=== PATIENT | female | born 2005 | race Two or more races ===

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

== ENCOUNTER 2024-02-14 21:23 | Inpatient (IN) | payer MEDICAID ==
[~2024-02-14] VITALS: Ht 180.3 cm; Wt 134.9 kg
[2024-02-14] MEDS: SODIUM CHLORIDE 0.9% 1,000 ML IVB ONE (00:30)
[2024-02-14] MEDS: PANTOPRAZOLE 40 MG/10 ML VIAL INJ IV ONE (00:30)
[2024-02-14] MEDS: MORPHINE SULFATE 4 MG/ML SYR/VIAL IV ONE (00:30)
[2024-02-14] MEDS: ONDANSETRON HCL 4 MG/2 ML VIAL IV ONE (00:30)
[~2024-02-14 21:23] MED LIST: PANT40TA2 PO
[2024-02-14 21:56] LABS: Basophils # (auto) 0 10 ^3/uL (0-0.2); Basophils % (auto) 0.4 % (0.0-2.0); Eosinophils # (auto) 0.1 10 ^3/uL (0-0.8); Eosinophils % (auto) 1.8 % (0.0-7.0); Hematocrit 35.9 % (36.0-46.0); Hemoglobin 12.2 g/dL (12.2-16.2); Lymphocytes # (auto) 1.8 10 ^3/uL (0.4-5.4); Lymphocytes % (auto) 24.4 % (10.0-50.0); Mean Corpuscular Hemoglobin 31.4 pg (28.0-32.0); Mean Corpuscular Hgb Conc. 34.1 g/dL (32.0-36.0); Mean Corpuscular Volume 92.1 fL (80.0-100.0); Monocytes # (auto) 0.5 10 ^3/uL (0-1.3); Monocytes % (auto) 6.9 % (0.0-12.0); Neutrophils % (auto) 66.5 % (37.0-80.0); Platelet Count (auto) 245 10^3/uL (140-450); Red Cell Distribution Width 13.2 % (11.8-14.3); White Blood Cell 7.5 10^3/uL (4.4-10.8)
[2024-02-14 22:15] LABS: Alanine Aminotransferase 18 U/L (7-40); Albumin 4.5 g/dL (3.2-4.8); Alkaline Phosphatase 75 U/L (46-116); Anion Gap 4 (5-15); Aspartate Aminotransferase 10 U/L (13-40); BUN/Creatinine Ratio 16.3 (10.0-20.0); Bilirubin, Total 0.3 mg/dL (0.2-1.0); Blood Urea Nitrogen 13 mg/dL (9-23); Calcium 9.6 mg/dL (8.7-10.4); Carbon Dioxide 29 mmol/L (20-31); Chloride 109 mmol/L (98-107); Glucose 92 mg/dL (74-106); Lipase 35 U/L (12-53); Potassium 4.1 mmol/L (3.5-5.1); Sodium 142 mmol/L (136-145); Total Protein 6.9 g/dL (5.7-8.2)
[2024-02-14 22:50] VITALS: PULSE 64; RESP 18; O2SAT 96
[2024-02-14 22:57] LABS: Urine WBC None Seen /hpf (0 - 5)
[2024-02-14 23:10] LABS: Urine Bacteria FEW /hpf (None Seen); Urine Blood Negative /uL (Negative); Urine Clarity Clear (Clear); Urine Color Yellow (Yellow); Urine Mucus FEW (None Seen); Urine Protein, UAD 1+ (Negative); Urine Specific Gravity 1.045 (1.001-1.035); Urine Urobilinogen 4 mg/dL (Negative); Urine pH 6.5 (5.0-9.0)
[2024-02-15] VITALS (9 sets, daily range): BP systolic 108–133; BP diastolic 72–75; PULSE 51–68; RESP 12–20; TEMP 97.9–98; O2SAT 96–98
[2024-02-15] MEDS ORDERED: ONDANSETRON HCL 4 MG/2 ML VIAL IV PRN (02:00)
[2024-02-15] MEDS: PANTOPRAZOLE 40 MG/10 ML VIAL INJ IV SCH (09:47)
[2024-02-15 14:41] LABS: INR 0.97 (0.9-1.15); Prothrombin Time 10.3 sec (9.3-11.8)
[2024-02-15] MEDS: metroNIDAZOLE 500MG/100ML 100 ML IV SCH (16:25)
[2024-02-15] MEDS: cefTRIAXone 2GM/50ML D5W 50 ML IV ONE (18:37)
[2024-02-16] VITALS (7 sets, daily range): BP systolic 102–150; BP diastolic 60–94; PULSE 42–76; RESP 16–20; TEMP 97.4–98.9; O2SAT 90–100
[2024-02-16 06:22] LABS: Basophils # (auto) 0 10 ^3/uL (0-0.2); Basophils % (auto) 0.5 % (0.0-2.0); Eosinophils # (auto) 0.1 10 ^3/uL (0-0.8); Eosinophils % (auto) 2.4 % (0.0-7.0); Hematocrit 33.8 % (36.0-46.0); Hemoglobin 11.7 g/dL (12.2-16.2); Lymphocytes # (auto) 2.3 10 ^3/uL (0.4-5.4); Lymphocytes % (auto) 42.8 % (10.0-50.0); Mean Corpuscular Hemoglobin 31.8 pg (28.0-32.0); Mean Corpuscular Hgb Conc. 34.5 g/dL (32.0-36.0); Mean Corpuscular Volume 92.2 fL (80.0-100.0); Monocytes # (auto) 0.4 10 ^3/uL (0-1.3); Neutrophils # (auto) 2.6 10 ^3/uL (1.6-8.6); Neutrophils % (auto) 47.3 % (37.0-80.0); Nucleated Red Blood Cells % 0.1 %; Platelet Count (auto) 214 10^3/uL (140-450); Red Blood Cells 3.67 10^6/uL (4.0-5.20); Red Cell Distribution Width 13.2 % (11.8-14.3); White Blood Cell 5.5 10^3/uL (4.4-10.8)
[2024-02-16 06:30] LABS: Anion Gap 7 (5-15); Carbon Dioxide 26 mmol/L (20-31); Chloride 107 mmol/L (98-107); Potassium 3.5 mmol/L (3.5-5.1); Sodium 140 mmol/L (136-145)
[2024-02-16 06:32] LABS: Calcium 9.4 mg/dL (8.7-10.4)
[2024-02-16 06:36] LABS: Glucose 84 mg/dL (74-106)
[2024-02-16 06:37] LABS: BUN/Creatinine Ratio 8.7 (10.0-20.0); Blood Urea Nitrogen 6 mg/dL (9-23)
[2024-02-16 08:16] LABS: Bilirubin, Direct 0.2 mg/dL (<0.3); Bilirubin, Total 0.7 mg/dL (0.2-1.0)
[2024-02-16] MEDS: ceFAZolin 2 GM/D5W100ml 100 ML IV ONE (08:31)
[2024-02-16] MEDS ORDERED: fentaNYL CITRATE 100 MCG/2 ML VL ONE (09:17)
[2024-02-16] MEDS ORDERED: MIDAZOLAM HCL 2MG/2ML 2ml VIAL (1mg/ml) ONE (09:17)
[2024-02-16] MEDS ORDERED: ONDANSETRON HCL 4 MG/2 ML VIAL ONE (09:19)
[2024-02-16] MEDS ORDERED: LIDOCAINE 2% (LOCAL ANESTH.) PF 5ml SDV ONE (09:19)
[2024-02-16] MEDS ORDERED: PROPOFOL 10 MG/ML 20 ML IV ONE (09:19)
[2024-02-16] MEDS ORDERED: ROCURONIUM 10MG/ML 10ML VIAL IV ONE (09:20)
[2024-02-16] MEDS: SUCCINYLCHOLINE CHLORIDE 20 MG/ML 10ML VIAL IV ONE (09:34)
[2024-02-16] MEDS: cefTRIAXone 2GM/50ML D5W 50 ML IV SCH (10:00)
[2024-02-16] MEDS: BUPIVACAINE 0.25% INJ 50ML VIAL ONE (10:14)
[2024-02-16] MEDS ORDERED: HYDROmorphone HCL 2 MG/ML VL/or syr IV PRN (10:30)
[2024-02-16] MEDS: ONDANSETRON HCL 4 MG/2 ML VIAL IV ONE (10:30)
[2024-02-16] MEDS ORDERED: GLYCOPYRROLATE 0.2 MG/ML 1ML VIAL ONE (10:50)
[2024-02-16] MEDS ORDERED: NEOSTIGMINE 1 MG/ML INJ (10mg/10ML VIAL) ONE (10:50)
[2024-02-16] MEDS ORDERED: MEPERIDINE HCL (50 MG/ML) 1 ML VIAL ONE (10:50)
[2024-02-16] MEDS: HYDROmorphone HCL 2 MG/ML VL/or syr IV PRN (11:11)
[2024-02-16] MEDS: MORPHINE SULFATE INJ 2 MG/ml SYRG IV PRN (14:07)
[2024-02-16] MEDS: HYDROcodone-ACET 5/325MG TAB PO PRN (18:08)
[2024-02-17 01:00] VITALS: BP 137/77; PULSE 72; RESP 18; TEMP 97.8; O2SAT 95
[2024-02-17 05:00] VITALS: BP 124/70; PULSE 73; RESP 18; TEMP 97.8; O2SAT 95
[2024-02-17 06:54] LABS: Basophils # (auto) 0 10 ^3/uL (0-0.2); Basophils % (auto) 0.2 % (0.0-2.0); Eosinophils # (auto) 0.1 10 ^3/uL (0-0.8); Eosinophils % (auto) 0.9 % (0.0-7.0); Hematocrit 32.3 % (36.0-46.0); Hemoglobin 11.3 g/dL (12.2-16.2); Lymphocytes # (auto) 1.9 10 ^3/uL (0.4-5.4); Mean Corpuscular Hemoglobin 31.9 pg (28.0-32.0); Mean Corpuscular Volume 91.3 fL (80.0-100.0); Monocytes # (auto) 0.5 10 ^3/uL (0-1.3); Monocytes % (auto) 7.6 % (0.0-12.0); Neutrophils # (auto) 3.8 10 ^3/uL (1.6-8.6); Neutrophils % (auto) 61.3 % (37.0-80.0); Nucleated Red Blood Cells % 0.1 %; Platelet Count (auto) 213 10^3/uL (140-450); Red Blood Cells 3.54 10^6/uL (4.0-5.20); Red Cell Distribution Width 13.2 % (11.8-14.3); White Blood Cell 6.2 10^3/uL (4.4-10.8)
[2024-02-17 07:13] LABS: Alanine Aminotransferase 21 U/L (7-40); Albumin 3.8 g/dL (3.2-4.8); Alkaline Phosphatase 52 U/L (46-116); Anion Gap 6 (5-15); Aspartate Aminotransferase 20 U/L (13-40); BUN/Creatinine Ratio 7.2 (10.0-20.0); Bilirubin, Total 0.7 mg/dL (0.2-1.0); Blood Urea Nitrogen < 5 mg/dL (9-23); Calcium 9.3 mg/dL (8.7-10.4); Carbon Dioxide 26 mmol/L (20-31); Chloride 109 mmol/L (98-107); Glucose 91 mg/dL (74-106); Potassium 3.7 mmol/L (3.5-5.1); Sodium 141 mmol/L (136-145); Total Protein 6.1 g/dL (5.7-8.2)
[2024-02-17 13:24] VITALS: BP_SYST 127; BP_SYST 98; BP_DIAS 65; BP_DIAS 79; PULSE 60; PULSE 68; RESP 17; RESP 19; TEMP 97.9; TEMP 98.1; O2SAT 94; O2SAT 97
[2024-02-17] MEDS: ACETAMINOPHEN 325 MG TAB PO PRN (15:01)
[2024-02-17 16:42] VITALS: BP 138/88; PULSE 63; RESP 19; TEMP 97.8; O2SAT 95
[2024-02-17] MEDS ORDERED: AUG875T PO (18:48)
== END 2024-02-17 19:52 | disposition home or self-care (01) | DRG 417 ==
LOC: ER 21:23 → OVERFLOW 02-15 01:58 → EAST 02-15 14:29
PROVIDERS: ADMIT Internal Medicine; ATTEND Internal Medicine
PROC: 0W9F4ZZ Drainage of Abdominal Wall, Percutaneous Endoscopic Approach (ICD-10-PCS; 2024-02-16)
PROC: 0FT44ZZ Resection of Gallbladder, Percutaneous Endoscopic Approach (ICD-10-PCS; principal; 2024-02-16 09:30)
DX: K80.00 Calculus of gallbladder with acute cholecystitis without obstruction (principal); K65.1 Peritoneal abscess; Z68.41 Body mass index [BMI] 40.0-44.9, adult; E66.01 Morbid (severe) obesity due to excess calories; K82.8 Other specified diseases of gallbladder; Z83.3 Family history of diabetes mellitus; Z79.899 Other long term (current) drug therapy
CPT/HCPCS: 36415; 74181; 76705; 78226; 80048; 80053; 81001; 81025; 82247; 82248; 83690; 84075; 84450; 84460; 84702; 85025; 85610; 85730; G0378; J0330; J2003; J2250; J2405; J2470; J2704; J3490